=== PATIENT | female | born 1965 | race Caucasian/White ===

== ENCOUNTER → 2024-05-13 10:59 | Outpatient (REF) | payer OTHER, SELFPAY | LOC: HWWDC 10:59 | PROVIDERS: ATTENDING PHYSICIAN Internal Medicine | DX: Z12.31 Encounter for screening mammogram for malignant neoplasm of breast (principal); M79.644 Pain in right finger(s) | CPT/HCPCS: 73140; 77063; 77067 ==

== ENCOUNTER → 2024-06-21 10:16 | Outpatient (REF) | payer OTHER, SELFPAY | LOC: RAD 10:16 | PROVIDERS: ATTENDING PHYSICIAN Nurse Practitioner | DX: J20.0 Acute bronchitis due to Mycoplasma pneumoniae (principal) | CPT/HCPCS: 71046 ==

== ENCOUNTER → 2024-08-22 09:04 | Outpatient (REF) | payer OTHER, SELFPAY | LOC: HWRAD 09:04 | PROVIDERS: ATTENDING PHYSICIAN Internal Medicine Gastroenterology; FAMILY PHYSICIAN Internal Medicine | DX: K30 Functional dyspepsia (principal) | CPT/HCPCS: 76700 ==

== ENCOUNTER 2024-10-11 09:38 | Emergency (ER) | payer OTHER, SELFPAY ==
[2024-10-11 09:41] VITALS: BP 119/80
[2024-10-11 10:08] VITALS: BMI 29.0
--- NOTE | 2024-10-11 10:19 | ED.GENMED ---
History of Present Illness
General
Chief Complaint: Back Pain
Source: patient
Time Seen by Provider: 10/11/24 09:59
History of Present Illness
History of Present Illness:
59-year-old female with no significant past medical history presents to the emergency department for evaluation of pain that started in between her shoulder blades yesterday afternoon, gradual in onset but constant, feels it slightly radiating into
the anterior chest, slightly worse with palpation/movement and deep inspiration, feels different than what she is getting treated for for physical therapy of bilateral shoulder pain secondary to arthritis. Patient states she has never had sensation
like this in the past, did note some mild chest discomfort today which is why she presented to the emergency department. She does note on started feeling stuffy with mild URI like symptoms but denies any fevers, chills, rigors, shortness
of breath, cough, hemoptysis, lower extremity edema, abdominal pain, nausea, vomiting or any other concerns. Did not take any symptoms prior to arrival. States there is a significant family history with her younger brother having an WA around the
age of 60. Social history was noted for occasional cigarette use back when she was in college. No alcohol history. No other concerns.
Past History
Past History
ED Past Medical History: None and Psychiatric; Negative Asthma, HTN, Hypercholesterolemia or NIDDM
ED Past Surgical History: None
Social History
Tobacco: Former smoker
Alcohol: None
Drug: None
Personal:
Living: with family
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
Review of Systems
Review of Systems
All Other Systems: ROS reviewed and negative except as documented in HPI and ROS
Phy Exam
Physical Exam
Physical Exam:
GENERAL: Alert , in no apparent distress
EYE: clear conjunctiva b/l
HEAD: NCAT
ENT: mmm.
CARDIAC: Regular rate and rhythm .
LUNGS: Clear breath sounds bilaterally, no acute respiratory distress, no wheezes/rales/rhonchi
ABDOMEN: Soft, without focal tenderness, no r/g, no cvat, negative Shankar sign, no tenderness at McBurney's point
BACK: There is reproducible tenderness in between the scapula, no rash
NEUROLOGICAL: Alert and oriented
SKIN: Warm and dry, skin intact.
MUSCULOSKELETAL: No edema, well perfused.
PSYCH: Normal and appropriate interaction.
Scores
Heart Failure Risk
Heart Failure Risk Score: Not Applicable
Heart Score for Chest Pain Patients
STEMI patient?: No
History: Slightly or Non-Suspicious
ECG: Normal
Age: >45 - <65 years
Risk Factors: 1 or 2 Risk Factors
Troponin: </= Normal Limit
Heart Score for Chest Pain Patients: 2
Heart Score Risk: 2.5% MACE over next 6 weeks
Withdrawal Assessment of Alcohol
Withdrawal Assessment Completed?: Not applicable
Course
Orders/Labs/Results
Orders:
Orders
10/11/24 09:44
ECG [Electrocardiogram (*1)] Urgent
Reason for Study: Fatigue / Weakness
10/11/24 09:45
EKG- Treatment ONCE
10/11/24 10:23
Complete Blood Count/With Diff Urgent
Comprehensive Metabolic Panel Urgent
D-Dimer Urgent
Lipase Urgent
Troponin I Urgent
10/11/24 11:20
CR Chest - 2 Views Urgent
Comment:
Reason For Exam: scapular/chest pain
Abnormal Lab Results
10/11/24
10:23
MCHC 32.9 L g/dL
(33.0-37.0)
Glucose 100 H mg/dl
(70-99)
10/11/24 10:23
10/11/24 10:23
Vital Signs
Initial and Last Documented VS:
Initial Vital Signs
Temp Pulse Resp BP Pulse Ox
97.8 F 93 18 119/80 100
10/11/24 09:41 10/11/24 09:41 10/11/24 09:41 10/11/24 09:41 10/11/24 09:41
Last Documented Vital Signs
Temp Pulse Resp BP Pulse Ox
97.8 F 71 16 112/53 99
10/11/24 09:41 10/11/24 11:43 10/11/24 11:43 10/11/24 11:43 10/11/24 11:43
MDM/Problems Addressed
Differential Diagnosis Includes:
Musculoskeletal back pain, PE, pneumonia or other infectious etiology, atypical ACS, less concern for dissection, less concern for GI cause,
MDM/Problems Addressed:
59-year-old female presenting to the emergency department for evaluation of mid back pain in between her scapula that started yesterday, continued today but also felt the pain within her chest. Presents to the ER hemodynamically stable and in no
acute distress. EKG done arrival is nonischemic. Risk factor of brother having acute WA at the age of 60. Patient notes mild URI-like symptoms this past so possibly infection related versus muscular etiology. D-dimer ordered. Will
order chest x-ray or CT based off of dimer result. Disposition pending
*Radiology
Radiology exam reviewed: preliminary read by ED provider (Normal chest x-ray)
*Pulse Oximetry
Patient hypoxic: no
*EKG
Heart Rate: 68
Rate: normal
Rhythm: sinus
[place]: normal axis
Ischemia: no ischemia
*Assistant Customer Service Manager Interpretation
Rate: normal
Rhythm: sinus
*Critical Care Note
Total Time (30-74mins, 75-104mins- exclusive of procedures): Not Applicable
Patient Management
Escalation/DeEscalation of care consider admission/obs:
Patient's workup is unremarkable. She has negative D-dimer and troponin. Chest x-ray unremarkable. Patient feels comfortable being discharged home. Chest pain hotline notified. Patient aware of return precautions to the ER.
ED Attending Note
-
Portions of this chart may have been created with voice recognition software.� Occasional wrong word or��sound alike� substitutions may have occurred due to the inherent limitations of voice recognition software.
Discharge Plan
Departure
Patient Disposition: Home (Routine Discharge)
Date of Disposition: 10/11/24
Time of Disposition: 11:34
Patient with high blood pressure during this ER visit?: No
Discharge Problem:
Dorsalgia
Instructions: Upper Back Pain (DC), Chest Pain DCA Follow Up
Prescriptions:
No Action
lamotrigine [Lamictal] 200 MG tablet
200 mg PO HS
lorazepam 0.5 MG tablet
0.5 mg PO HS PRN (Reason: anxiety)
cetirizine 10 MG tablet
10 mg PO DAILY
methotrexate sodium 2.5 MG tablet
10 mg PO WEEKLY
folic acid 1 MG tablet
1 mg PO DAILY
Interventions
Interventions:
*Risk Screen - Suicide Last Done: 10/11/24 09:41
*General Assessment Last Done: 10/11/24 09:41
*Neglect/Abuse Screening Last Done: 10/11/24 09:41
*Nursing Disposition Last Done: 10/11/24 12:00
ED-Musculoskeletal Assessment Last Done: 10/11/24 10:08
Discharge Date and Time
Discharge Date/Time: 10/11/24 12:00
Print Language: ETHIOPIAN
[2024-10-11 10:32] LABS: % Basophils 0.6 % (0-2); % Eosinophils 1.1 % (0-6); % Immature Granulocytes 0.2 % (0-0.5); % Lymphocytes 34.3 % (20.5-51.1); % Monocytes 5.2 % (1.7-9.3); % Neutrophils 58.6 % (42.2-75.2); Absolute Eosinophils 0.1 10^3/uL (0-0.7); Absolute Lymphocytes 1.9 10^3/uL (1.2-3.4); Absolute Monocytes 0.3 10^3/uL (0.1-0.6); Absolute Neutrophils 3.2 10^3/uL (1.4-6.5); Hematocrit 43.4 % (37.0-47.0); Hemoglobin 14.3 g/dL (12.0-16.0); Mean Corp Hgb Conc. 32.9 g/dL (33.0-37.0); Mean Corpuscular Hgb 28.8 pg (27.0-31.0); Mean Corpuscular Volume 87.5 fL (81.0-99.0); Nucleated Red Blood Cells % 0 %; Platelet Count 289 10^3/uL (130-400); Red Blood Cell Count 4.96 10^6/uL (4.20-5.40); Red Cell Dist. Width 13.2 % (11.5-14.5); White Blood Cell Count 5.4 10^3/uL (4.8-10.8)
[2024-10-11 10:48] LABS: ALT (SGPT) 28 U/L (0-35); AST (SGOT) 23 U/L (14-36); Albumin 4.8 g/dl (3.5-5.0); Alkaline Phosphatase 92 U/L (38-126); Blood Urea Nitrogen 15 mg/dl (7-17); Calcium 9.7 mg/dl (8.4-10.2); Carbon Dioxide 28 mmol/L (22-30); Chloride 106 mmol/L (98-107); Estimated Creatinine Clearance 80 ml/min; Glucose 100 mg/dl (70-99); Potassium 4.7 mmol/L (3.5-5.1); Sodium 143 mmol/L (135-145); Total Bilirubin 1.2 mg/dl (0.2-1.3); Total Protein 7.4 g/dl (6.3-8.2); eGFR > 60.00
[2024-10-11 10:56] LABS: Troponin I < 0.012 ng/ml
[2024-10-11 10:59] LABS: Lipase 57 U/L (23-300)
[2024-10-11 11:15] LABS: D-Dimer 0.45 ug/mlFEU (0.00-0.50)
[2024-10-11 11:43] VITALS: BP 112/53
== END 2024-10-11 12:00 | disposition home or self-care (01) ==
LOC: EMR 09:38
PROVIDERS: Physician Assistant Medical; EMERGENCY PHYSICIAN Student in an Organized Health Care Education/Training Program; FAMILY PHYSICIAN Internal Medicine
DX: M54.9 Dorsalgia, unspecified (principal); R07.89 Other chest pain; Z87.891 Personal history of nicotine dependence; Z82.49 Family history of ischemic heart disease and other diseases of the circulatory system
CPT/HCPCS: 99285; 71046; 80053; 83690; 84484; 85025; 85379; 93005

== ENCOUNTER → 2025-07-10 09:34 | Outpatient (REF) | payer OTHER, SELFPAY | LOC: WDC 09:34 | PROVIDERS: ATTENDING PHYSICIAN Obstetrics & Gynecology; FAMILY PHYSICIAN Internal Medicine | DX: R92.8 Other abnormal and inconclusive findings on diagnostic imaging of breast (principal) | CPT/HCPCS: 77065 ==